=== PATIENT | male | born 1945 | race African-American/Black ===

== ENCOUNTER → 2016-10-20 | Outpatient (CLI) | payer MEDICARE ==
--- NOTE | 2016-10-20 17:13 | RADIOLOGY REPORT (SQ) ---
EXAM DESCRIPTION: CT CHEST WITH; CT ABD/PELVIS WITH IV ONLY COMPLETED DATE/TIME: 10/20/2016 3:08 pm REASON FOR STUDY: LUNG CA-ABD/PELVIS PAIN C34.91 MALIGNANT NEOPLASM OF UNSP PART OF RIGHT BRONCHUS OR COMPARISON: PET-CT 10/20/2011 CT chest 02/04/2014, 12/13/2012 CT chest and abdomen 03/24/2016 CONTRAST TYPE AND DOSE: contrast/concentration: Isovue 300.00 mg/ml; Total Contrast Delivered: 74.0 ml; Total Saline Delivered: 66.1 ml RENAL FUNCTION: Creatinine 1.5 TECHNIQUE: CT scan of the chest performed using helical scanning technique with dynamic intravenous contrast injection. Images reviewed with lung, soft tissue and bone windows. Reconstructed coronal a nd sagittal MPR images reviewed. All images stored on PACS. CT scan of the abdomen and pelvis performed with intravenous and with very limited oral contrastusing helical scanning technique with dynamic intravenous contrast injection. Images reviewed with lung, soft tissue and bone windows. Reconstructed coronal and sagittal MPR images reviewed. Delayed image s for evaluation of the urinary system also acquired and evaluated. All images stored on PACS. All CT scanners at this facility use dose modulation, iterative reconstruction, and/or weight based d osing when appropriate to reduce radiation dose to as low as reasonably achievable (ALARA). [facility]: Dose Right [facility]: CareDose [facility]: Dose Right [facility]: Teradose 4D [facility]: Smart [employer] RADIATION DOSE: Up-to-date CT equipment and radiation dose reduction techniques were employed. CTDIv ol: 4.8 - 9.6 mGy. DLP: 971 mGy-cm. . LIMITATIONS: None. FINDINGS: CHEST: LUNGS AND PLEURA: Post right upper and middle lobectomy. There is volume loss in the right hemithora x and there are surgical clips at the right hilum. No worrisome pulmonary nodules, right pleural eff usion appearance minimal right apical pleural-parenchymal scarring. Left lung and pleura are unremarkable aside from a small non calcific pleural plaque in the anterior left chest deep to the anterior 3rd rib, stable compared to previous studies. HILAR AND MEDIASTINAL STRUCTURES: No identified masses or abnormal nodes. HEART AND VASCULAR STRUCTURES: No aneurysm or dissection. No central pulmonary emboli. No pericardi al effusion. Stable moderate coronary artery calcification HARDWARE: Right permanent central line tip superior vena cava THYROID AND OTHER SOFT TISSUES: No masses. No adenopathy. BONES: No significant finding. OTHER: No other significant finding. ABDOMEN AND PELVIS: LIVER: Normal size. No masses or dilated ducts. SPLEEN: Normal size. No focal lesions. PANCREAS: Along the pancreatic tail at the splenic hilum, a 2 x 1.4 cm fluid-filled cyst and a 1.6 x 1.3 cm fluid-filled cyst are present on axial images 29-32. These are new compared to CT chest exam 03/24/2016. Question prior pancreatitis. GALLBLADDER: No identified stones by CT criteria. No inflammatory changes to suggest cholecystitis. ADRENAL GLANDS: No significant masses or asymmetry. RIGHT KIDNEY AND URETER: No solid masses. Multiple right renal cortical cysts, largest is 4.6 cm in the right mid-pole kidney. No significant calcification. No hydronephrosis. Mild ectasia of the dis martita right ureter near the ureterovesical junction without evidence of urinary outflow obstruction. T his is of doubtful clinical significance. LEFT KIDNEY AND URETER: No solid masses. Multiple left renal cortical cysts, the largest is in the l eft upper pole kidney 3.4 cm in length. Multiple less than 5 mm intrarenal nonobstructive stones are present. No hydronephrosis or hydroureter. AORTA AND VESSELS: No abdominal aortic aneurysm or dissection. Very heavily calcified bilateral karishma l arteries and bilateral common iliac arteries with greater than 50% stenosis RETROPERITONEUM: No retroperitoneal adenopathy, hemorrhage or masses. BOWEL AND PERITONEAL CAVITY: Minimal oral contrast. No gross evidence of bowel obstruction. No free intraperitoneal air or fluid. On the axial images, there is swirling of the small bowel mesenteries , on axial images 40 through 67. This could indicate twisting of the mesentery. Distal ileum small bowel loops are seen in the left upper quadrant rather than the right lower quadrant, with stretching of the distal ileum on coronal images 36-40. APPENDIX: Normal on coronal image 41 ABDOMINAL WALL: No masses. No hernias. BONES: No lytic or blastic lesions. OTHER: No other significant finding. IMPRESSION: Post right upper and middle lobectomy. No CT evidence of locally recurrent lung cancer No CT evidence of metastatic disease to the abdomen or pelvis Malposition of the distal small bowel in the left upper quadrant rather than the right lower quadrant with twisting of the mesenteries. Patient may have adhesions or internal hernia. No CT evidence of bowel obstruction. TECHNICAL DOCUMENTATION: JOB ID: [id number] Quality ID # 436: Final reports with documentation of one or more dose reduction techniques (e.g., Au tomated exposure control, adjustment of the mA and/or kV according to patient size, use of iterative reconstruction technique) 2010 [employer]- All Rights Reserved
== END ==
LOC: RAD 14:01
PROVIDERS: ATTEND Internal Medicine Medical Oncology
DX: C34.91 Malignant neoplasm of unspecified part of right bronchus or lung (principal); R10.2 Pelvic and perineal pain; R10.9 Unspecified abdominal pain
CPT/HCPCS: 71260; 74177; 82565

== ENCOUNTER → 2017-04-24 | Outpatient (CLI) | payer MEDICARE ==
--- NOTE | 2017-04-24 15:24 | RADIOLOGY REPORT (SQ) ---
EXAM DESCRIPTION: CT ABDOMEN WITH IV ORAL CONT COMPLETED DATE/TIME: 04/24/2017 2:58 pm REASON FOR STUDY: ABN ABD SCAN ON PET R93.5 ABN FINDINGS ON DX IMAGING OF ABD REGIONS, INC RETROPE COMPARISON: 03/24/2016 TECHNIQUE: CT scan of the abdomen performed with intravenous and with oral contrast using helical sc anning technique with dynamic intravenous contrast injection. Images reviewed with lung, soft tissue, and bone windows. Reconstructed coronal and sagittal MPR images reviewed. Delayed images for evaluat ion of the urinary system also acquired and evaluated. All images stored on PACS. All CT scanners at this facility use dose modulation, iterative reconstruc tion, and/or weight based dosing when appropriate to reduce radiation dose to as low as reasonably ac hievable (ALARA). [facility]: Dose Right [facility]: CareDose [facility]: Dose Right [facility]: Teradose 4D [facility]: [employer] CONTRAST TYPE AND DOSE: contrast/concentration: Isovue 370.00 mg/ml; Total Contrast Delivered: 80.0 ml; Total Saline Delivered: 68.0 ml RENAL FUNCTION: Creatinine 1.6 RADIATION DOSE: CT Rad equipment meets quality standard of care and radiation dose reduction techniq ues were employed. CTDIvol: 4.8 - 5.1 mGy. DLP: 338 mGy-cm. . LIMITATIONS: None. FINDINGS: LOWER CHEST: No significant findings. No nodules or infiltrates. LIVER: Normal size. No masses. No dilated ducts. SPLEEN: Normal size. No focal lesions. PANCREAS: No masses. No significant calcifications. No adjacent inflammation or peripancreatic fluid collections. Pancreatic duct not dilated. GALLBLADDER: No identified stones by CT criteria. No inflammatory changes to suggest cholecystitis. ADRENAL GLANDS: No significant masses or asymmetry. RIGHT KIDNEY AND URETER: No solid masses. There are some cortical cysts. No significant calcificat ions. No hydronephrosis or hydroureter. LEFT KIDNEY AND URETER: No solid masses. A couple of cortical cysts are present. There are some sm all nonobstructing intrarenal calculi. The largest measures about 3 x 8 mm. No hydronephrosis or h ydroureter. AORTA AND VESSELS: No aneurysm. No dissection. Renal arteries, SMA, celiac without stenosis. RETROPERITONEUM: No retroperitoneal adenopathy, hemorrhage or masses. BOWEL AND PERITONEAL CAVITY: No masses or inflammatory changes. No free fluid or peritoneal masses. APPENDIX: Normal. ABDOMINAL WALL: No masses. No hernias. BONES: No significant or acute findings. OTHER: No other significant finding. IMPRESSION: Renal cortical cysts. Nonobstructing left intrarenal calculi. TECHNICAL DOCUMENTATION: JOB ID: [id number] Quality ID # 436: Final reports with documentation of one or more dose reduction techniques (e.g., Au tomated exposure control, adjustment of the mA and/or kV according to patient size, use of iterative reconstruction technique) 2010 [employer]- All Rights Reserved
== END ==
LOC: RAD 14:07
PROVIDERS: ATTEND Internal Medicine Medical Oncology
DX: R93.5 Abnormal findings on diagnostic imaging of other abdominal regions, including retroperitoneum (principal); N20.0 Calculus of kidney; N28.1 Cyst of kidney, acquired
CPT/HCPCS: 74160; 82565

== ENCOUNTER → 2017-10-31 | Outpatient (CLI) | payer MEDICARE ==
--- NOTE | 2017-10-31 15:06 | RADIOLOGY REPORT (SQ) ---
EXAM DESCRIPTION: L SPINE WHOLE COMPLETED DATE/TIME: 10/31/2017 2:05 pm REASON FOR STUDY: LUMBAGO WITH SCIATICA, UNSPECIFIED SIDE M54.40 LUMBAGO WITH SCIATICA, UNSPECIFIED SIDE COMPARISON: 2015 NUMBER OF VIEWS: Five views including obliques. TECHNIQUE: AP, lateral, oblique, and sacral radiographic images acquired of the lumbar spine. LIMITATIONS: None. FINDINGS: MINERALIZATION: Osteopenia. SEGMENTATION: Normal. No transitional anatomy. ALIGNMENT: Straightening of the normal lumbar lordosis. VERTEBRAE: Maintained height. No fracture or worrisome bone lesion. DISCS: Disc disease with narrowing at multiple levels. Most pronounced at L4-5 and L5-S1. POSTERIOR ELEMENTS: No pars defect. Degenerative facet overgrowth at multiple levels. HARDWARE: None in the spine. PARASPINAL SOFT TISSUES: Dense aortic calcification. PELVIS: Intact as visualized. No fractures or worrisome bone lesions. SI joints intact. OTHER: No other significant finding. IMPRESSION: SPONDYLOSIS WITHOUT BONE LESION OR FRACTURE. TECHNICAL DOCUMENTATION: JOB ID: [id number] [employer]- All Rights Reserved Reading location - IP/workstation name: [email or web address]
== END ==
LOC: RAD 13:50
PROVIDERS: ATTEND Internal Medicine Medical Oncology
DX: M54.40 Lumbago with sciatica, unspecified side (principal); M47.896 Other spondylosis, lumbar region
CPT/HCPCS: 72110

== ENCOUNTER → 2018-06-23 | Outpatient (CLI) | payer MEDICARE ==
--- NOTE | 2018-06-24 10:28 | RADIOLOGY REPORT (SQ) ---
EXAM DESCRIPTION: PET CT SKULL/THIGH COMPLETED DATE/TIME: 06/23/2018 8:05 pm REASON FOR STUDY: LUNG CANCER C34.91 MALIGNANT NEOPLASM OF UNSP PART OF RIGHT BRONCHUS OR COMPARISON: CT chest 10/13/2011, 10/20/2016 PET-CT 12/20/2011 CT abdomen pelvis 04/24/2017, 10/20/2016 RADIONUCLIDE AND DOSE: 10.4 mCi F18 FDG The route of agent administration: Intravenous FASTING BLOOD SUGAR: 114 mg/dl CONTRAST TYPE AND DOSE: No CT contrast given. TECHNIQUE: Blood glucose level was verified. Above dose of FDG was injected intravenously. 2-D seg mented attenuation correction images were obtained from the base of the skull to the midthighs. Nonc ontrast CT images were obtained for attenuation correction and fusion with emission images. CT image s were performed without oral or intravenous contrast and are not sensitive for parenchymal lesions. A series of overlapping emission PET images were obtained. Images reviewed and manipulated at [facility] work station by the radiologist. Images stored on PACS. LIMITATIONS: None. FINDINGS: HEAD AND NECK: No areas of abnormal metabolic activity in the soft tissues of the head and neck. CHEST: Patient is post right upper lobectomy for lung cancer in 2012. Along the anterior right chest wall, just deep to the anterior right 3rd and 4th ribs, a rind of pleu ral-based tissue 2.3 x 1.1 cm in size is present with SUV 6.1. This could represent recurrent tumor, lower could represent post infectious/postinflammatory change. There are multiple subcentimeter nodules at the lung apices combined with bandlike scarring. None of these lesions are metabolically active. No metabolically active hilar or mediastinal lymph nodes. ABDOMEN AND PELVIS: No areas of abnormal metabolic activity in the abdomen or pelvis. Expected physi ologic activity is present in the genitourinary system and bowel. PROXIMAL LOWER EXTREMITIES: No areas of abnormal metabolic activity in the soft tissues of the lower extremities. BONES: No abnormal metabolic activity in the visualized skeleton. ADDITIONAL CT FINDINGS: Heavy atherosclerotic arterial vascular calcification. Bilateral renal corti dexter cysts. Left lower pole intrarenal nonobstructive less than 5 mm stones. Old postsurgical change s from right upper lobectomy. OTHER: Blood pool background activity 1.9 SUV. Liver background activity 2.9 SUV IMPRESSION: Rind of abnormal metabolically active soft tissue anterior right lung, 2.3 x 1.1 cm in s ize. TECHNICAL DOCUMENTATION: JOB ID: [id number] [employer]- All Rights Reserved Reading location - IP/workstation name: [email or web address]
== END ==
LOC: RAD 15:39
PROVIDERS: ATTEND Internal Medicine Medical Oncology
DX: C34.11 Malignant neoplasm of upper lobe, right bronchus or lung (principal); N28.1 Cyst of kidney, acquired; N20.0 Calculus of kidney
CPT/HCPCS: 78815; A9552

== ENCOUNTER 2018-07-02 08:40 | Day surgery (SDC) | payer MEDICARE ==
[2018-07-02 10:29] LABS: HEMATOCRIT 44.3 % (37.9-51.0); HEMOGLOBIN 15.1 g/dL (13.5-17.0); MEAN CORPUSCULAR HEMOGLOBIN 33.1 pg (27.0-33.4); MEAN CORPUSCULAR VOLUME 97 fl (80-97); PLATELET COUNT 221 10^3/uL (150-450); RED BLOOD COUNT 4.56 10^6/uL (4.35-5.55); RED CELL DISTRIBUTION WIDTH 16.9 % (11.5-14.0); WHITE BLOOD COUNT 7.1 10^3/uL (4.0-10.5)
[2018-07-02 10:36] LABS: INTERNATIONAL RATION (INR) 0.95; PROTHROMBIN TIME 13.2 SEC (11.4-15.4)
[2018-07-02 10:59] LABS: BLOOD UREA NITROGEN 22 mg/dL (7-20)
[2018-07-02] MEDS ORDERED: FENTANYL CITRATE INJ/PF 100 MCG/2 ML AMPUL ONE (11:43)
[2018-07-02] MEDS ORDERED: MIDAZOLAM 2 MG/2 ML INJ ONE (11:43)
[2018-07-02] MEDS ORDERED: LIDOCAINE 1% INJ-PF (10 MG/ML) 30 ML SDV ONE (11:43)
--- NOTE | 2018-07-02 12:47 | RADIOLOGY REPORT (SQ) ---
EXAM DESCRIPTION: CHEST SINGLE VIEW COMPLETED DATE/TIME: 07/02/2018 12:38 pm REASON FOR STUDY: POST LUNG BX COMPARISON: Chest films 04/21/2015, PET-CT 06/23/2018 EXAM PARAMETERS: NUMBER OF VIEWS: One view. TECHNIQUE: Single frontal radiographic view of the chest acquired. RADIATION DOSE: NA LIMITATIONS: None. FINDINGS: LUNGS AND PLEURA: Post anterior right lung pleural based nodule biopsy. No right sided pn eumothorax. Old right upper and middle lobectomy changes. Left lung well inflated and clear. No pleural effusions. No left pneumothorax. MEDIASTINUM AND HILAR STRUCTURES: No masses. Contour normal. HEART AND VASCULAR STRUCTURES: Heart normal in size. Normal vasculature. BONES: No acute findings. HARDWARE: None in the chest. OTHER: No other significant finding. IMPRESSION: No pneumothorax post right lung biopsy. Old prior right upper and middle lobectomy TECHNICAL DOCUMENTATION: JOB ID: [id number] [employer]- All Rights Reserved Reading location - IP/workstation name: [email or web address]
--- NOTE | 2018-07-02 13:45 | RADIOLOGY REPORT (SQ) ---
EXAM DESCRIPTION: CT BIOPSY LUNG/MEDIASTINUM; CT NEEDLE PLACEMENT COMPLETED DATE/TIME: 07/02/2018 12:26 pm REASON FOR STUDY: MALIGNANT NEOPLASM OF RIGHT BRONCHUS OR LUNG; LUNG BIOPSY C34.91 MALIGNANT NEOPLA SM OF UNSP PART OF RIGHT BRONCHUS OR Z79.01 CARE HOME (CURRENT) USE OF ANTICOAGULANTS COMPARISON: PET-CT 06/23/2018 CT chest 10/20/2016 TECHNIQUE: CT guided biopsy of the pleural-based right lung mass performed with conscious sedation. CT Fluoroscopy Time: 4.[address] fluoro time All CT scanners at this facility use dose modulation, iterative reconstruction, and/or weight based d osing when appropriate to reduce radiation dose to as low as reasonably achievable (ALARA). [facility]: Dose Right [facility]: CareDose [facility]: Dose Right [facility]: Teradose 4D [facility]: [employer] RADIATION DOSE: mGy. FINDINGS: After obtaining informed consent and explaining the risks and benefits of conscious sedati on,the patient agreed to the procedure. Prior to the procedure, a time out was performed to verify th e patient's identity and planned procedure. IV sedation was administered and physician direction by the registered nurse using 1 milligrams of Ve rsed and 50 micrograms of fentanyl, for conscious sedation. Physiologic monitoring was provided befor e, during, and after sedation. The total sedation time was 35 minutes. Documentation face to face time, the performing proceduralist, spent monitoring the patient: [address] scanning was performed to localize the percutaneous site for the biopsy approach. After sterile skin prep and local lidocaine for skin and deep tissue anesthesia, a coaxial biopsy nee dle was used to obtain 3 cores of tissue. The biopsy tissue was submitted to the lab in formalin. The re were no immediate complications. Pathology is pending No pneumothorax on post procedure chest x-ray dictated separately IMPRESSION: CT GUIDED BIOPSY OF THE RIGHT LUNG MASS PERFORMED WITHOUT IMMEDIATE COMPLICATION. PATHO LOGY PENDING. COMMENT: Quality ID 145: Final reports for procedures using fluoroscopy that document radiation exp osure indices, or exposure time and number of fluorographic images (if radiation exposure indices are not available) Patient medication list reviewed: Yes- Quality ID# [id number]:Eligible professional attests to documenting i n the medical record they obtained, updated, or reviewed the patient's current medications.. TECHNICAL DOCUMENTATION: JOB ID: [id number] Quality ID# 436: Final reports with documentation of one or more dose reduction techniques (e.g., Aut omated exposure control, adjustment of the mA and/or kV according to patient size, use of iterative r econstruction technique) 2010 [employer]- All Rights Reserved Reading location - IP/workstation name: [email or web address]
--- NOTE | 2018-07-02 13:45 | RADIOLOGY REPORT (SQ) ---
EXAM DESCRIPTION: CT BIOPSY LUNG/MEDIASTINUM; CT NEEDLE PLACEMENT COMPLETED DATE/TIME: 07/02/2018 12:26 pm REASON FOR STUDY: MALIGNANT NEOPLASM OF RIGHT BRONCHUS OR LUNG; LUNG BIOPSY C34.91 MALIGNANT NEOPLA SM OF UNSP PART OF RIGHT BRONCHUS OR Z79.01 CUSTODIAL (CURRENT) USE OF ANTICOAGULANTS COMPARISON: PET-CT 06/23/2018 CT chest 10/20/2016 TECHNIQUE: CT guided biopsy of the pleural-based right lung mass performed with conscious sedation. CT Fluoroscopy Time: 4.[address] fluoro time All CT scanners at this facility use dose modulation, iterative reconstruction, and/or weight based d osing when appropriate to reduce radiation dose to as low as reasonably achievable (ALARA). [facility]: Dose Right [facility]: CareDose [facility]: Dose Right [facility]: Teradose 4D [facility]: [employer] RADIATION DOSE: mGy. FINDINGS: After obtaining informed consent and explaining the risks and benefits of conscious sedati on,the patient agreed to the procedure. Prior to the procedure, a time out was performed to verify th e patient's identity and planned procedure. IV sedation was administered and physician direction by the registered nurse using 1 milligrams of Ve rsed and 50 micrograms of fentanyl, for conscious sedation. Physiologic monitoring was provided befor e, during, and after sedation. The total sedation time was 35 minutes. Documentation face to face time, the performing proceduralist, spent monitoring the patient: [address] scanning was performed to localize the percutaneous site for the biopsy approach. After sterile skin prep and local lidocaine for skin and deep tissue anesthesia, a coaxial biopsy nee dle was used to obtain 3 cores of tissue. The biopsy tissue was submitted to the lab in formalin. The re were no immediate complications. Pathology is pending No pneumothorax on post procedure chest x-ray dictated separately IMPRESSION: CT GUIDED BIOPSY OF THE RIGHT LUNG MASS PERFORMED WITHOUT IMMEDIATE COMPLICATION. PATHO LOGY PENDING. COMMENT: Quality ID 145: Final reports for procedures using fluoroscopy that document radiation exp osure indices, or exposure time and number of fluorographic images (if radiation exposure indices are not available) Patient medication list reviewed: Yes- Quality ID# [id number]:Eligible professional attests to documenting i n the medical record they obtained, updated, or reviewed the patient's current medications.. TECHNICAL DOCUMENTATION: JOB ID: [id number] Quality ID# 436: Final reports with documentation of one or more dose reduction techniques (e.g., Aut omated exposure control, adjustment of the mA and/or kV according to patient size, use of iterative r econstruction technique) 2010 [employer]- All Rights Reserved Reading location - IP/workstation name: [email or web address]-
--- NOTE | 2018-07-02 14:52 | RADIOLOGY REPORT (SQ) ---
EXAM DESCRIPTION: CHEST SINGLE VIEW COMPLETED DATE/TIME: 07/02/2018 2:23 pm REASON FOR STUDY: POST LUNG BX 2 HR COMPARISON: 07/02/2018, 1220 hours EXAM PARAMETERS: NUMBER OF VIEWS: One view. TECHNIQUE: Single frontal radiographic view of the chest acquired. RADIATION DOSE: NA LIMITATIONS: None. FINDINGS: LUNGS AND PLEURA: No right pneumothorax 2 hours post right lung biopsy. Old post right upper and middle lobectomy changes. Lungs are free of focal infiltrates. No pleural effusions. MEDIASTINUM AND HILAR STRUCTURES: Surgical clips right hilum post right middle and upper lobectomy HEART AND VASCULAR STRUCTURES: Heart normal in size. Normal vasculature. BONES: No acute findings. HARDWARE: None in the chest. OTHER: No other significant finding. IMPRESSION: No pneumothorax 2 hours post right lung biopsy TECHNICAL DOCUMENTATION: JOB ID: [id number] [employer]- All Rights Reserved Reading location - IP/workstation name: [email or web address]
[2018-07-02 20:59] VITALS: BP 121/68
== END 2018-07-02 14:20 | disposition home or self-care (01) ==
LOC: RAD 08:40
PROVIDERS: ATTEND Internal Medicine Medical Oncology
DX: C34.91 Malignant neoplasm of unspecified part of right bronchus or lung (principal); Z79.01 Long term (current) use of anticoagulants; R06.02 Shortness of breath; F17.210 Nicotine dependence, cigarettes, uncomplicated; D64.9 Anemia, unspecified
CPT/HCPCS: 36415; 84520; 82565; 85027; 85610; 85730; 88342 ×2; 88341 ×2; 88305 ×2; 88313 ×2; 71045; 77012; 32405; J2250; J3010; J3490

== ENCOUNTER → 2018-11-27 | Outpatient (CLI) | payer MEDICARE | LOC: RAD 10:00 | PROVIDERS: ATTEND Internal Medicine Medical Oncology | DX: R52 Pain, unspecified (principal); R20.0 Anesthesia of skin | CPT/HCPCS: 82565 ==

== ENCOUNTER → 2018-12-01 | Outpatient (CLI) | payer MEDICARE ==
--- NOTE | 2018-12-02 12:16 | RADIOLOGY REPORT (SQ) ---
EXAM DESCRIPTION: PET CT SKULL/THIGH COMPLETED DATE/TIME: 12/01/2018 10:19 pm REASON FOR STUDY: (C34.11)MALIGNANT NEOPLASM OF UPPER LOBE, RIGHT BRONCHUS OR LUNG C34.11 MALIGNANT NEOPLASM OF UPPER LOBE, RIGHT BRONCHUS OR L COMPARISON: 06/23/2018. RADIONUCLIDE AND DOSE: 10 mCi F18 FDG The route of agent administration: Intravenous FASTING BLOOD SUGAR: 113 mg/dl CONTRAST TYPE AND DOSE: No CT contrast given. TECHNIQUE: Blood glucose level was verified. Above dose of FDG was injected intravenously. 2-D seg mented attenuation correction images were obtained from the base of the skull to the midthighs. Nonc ontrast CT images were obtained for attenuation correction and fusion with emission images. CT image s were performed without oral or intravenous contrast and are not sensitive for parenchymal lesions. A series of overlapping emission PET images were obtained. Images reviewed and manipulated at [facility] work [facility] by the radiologist. Images stored on PACS. LIMITATIONS: None. FINDINGS: HEAD AND NECK: No areas of abnormal metabolic activity in the soft tissues of the head and neck. CHEST: Stable surgical changes and scarring. Previously seen pleural-based soft tissue mass in the a nterior right chest (axial series 3, image 77) currently measures 0.8 by 2.9 cm. Mean SUV is 1.3 wit h prior value 6.1. There is indistinct focal nodularity in the medial left upper lobe, anterior to t he aortic arch (axial series 3, image 71). Mean SUV 3.01. Again seen are several subcentimeter pulm onary nodules, particularly in the left upper lobe, which appear generally unchanged and are not hype rmetabolic. ABDOMEN AND PELVIS: There is a 1.5 cm low-attenuation lesion in the superior right lobe of the liver (axial series 3, image 108) which is not hypermetabolic. There is an ill-defined lesion in the infer ior right lobe of the liver (axial series 3, image 135) which measures approximately 3.8 cm. Mean TORO V value ranges from 3.09 to 4.08. Expected physiologic activity is present in the genitourinary syst em and bowel. PROXIMAL LOWER EXTREMITIES: No areas of abnormal metabolic activity in the soft tissues of the lower extremities. BONES: No abnormal metabolic activity in the visualized skeleton. ADDITIONAL CT FINDINGS: Renal cortical cysts. Nonobstructing calculi. No additional significant fin dings on the noncontrast CT images. OTHER: Background blood pool activity mean SUV 1.42. Background liver activity mean SUV 2.08. No ot her significant findings. IMPRESSION: 1. PLEURAL-BASED SOFT TISSUE MASS IN THE ANTERIOR RIGHT CHEST, RELATIVELY UNCHANGED ON THE CT IMAGES. HOWEVER, ACTIVITY HAS DECREASED. CURRENT SUV VALUE IS 1.3 WITH PRIOR VALUE 6.1. THERE IS A NEW IN DISTINCT AREA OF NODULARITY IN THE MEDIAL LEFT UPPER LOBE WITH MEAN SUV 3.01. THIS COULD REPRESENT A FOCAL AREA OF INFLAMMATION OR INFECTION. MALIGNANT PROCESS CANNOT BE EXCLUDED. 2. MULTIPLE PULMONARY NODULES PARTICULARLY IN THE LEFT UPPER LOBE, UNCHANGED AND NOT HYPERMETABOLIC. 3. INDISTINCT LESION IN THE INFERIOR RIGHT LOBE OF THE LIVER DESCRIBED WITH ABNORMAL ACTIVITY CONS ISTENT WITH METASTASIS. THERE IS ALSO AN INDISTINCT LOW-ATTENUATION LESION IN THE SUPERIOR RIGHT LOB E OF THE LIVER. THIS WAS NOT PRESENT ON PRIOR CT (04/24/2017) AND IS CONCERNING FOR METASTATIC INVOL VEMENT, ALTHOUGH THERE IS NO ABNORMAL INCREASED ACTIVITY ON THE PET IMAGING. 4. REMAINDER OF THE PET SCAN IS UNREMARKABLE. OTHER CT FINDINGS ABOVE. TECHNICAL DOCUMENTATION: JOB ID: [id number] [employer]- All Rights Reserved Reading location - IP/workstation name: [email or web address]
== END ==
LOC: RAD 17:43
PROVIDERS: ATTEND Internal Medicine Medical Oncology
DX: C34.11 Malignant neoplasm of upper lobe, right bronchus or lung (principal)
CPT/HCPCS: 78815; A9552

== ENCOUNTER → 2019-11-04 | Outpatient (CLI) | payer MEDICARE ==
--- NOTE | 2019-11-04 13:34 | RADIOLOGY REPORT (SQ) ---
EXAM DESCRIPTION: CT CHEST WITHOUT IMAGES COMPLETED DATE/TIME: 11/04/2019 8:47 am REASON FOR STUDY: R22.9 SOLITARY PULMONARY NODULE R91.1 SOLITARY PULMONARY NODULE COMPARISON: None. TECHNIQUE: CT scan performed of the chest without intravenous contrast. Images reviewed with lung, soft tissue and bone windows. Reconstructed coronal and sagittal MPR images reviewed. All images st ored on PACS. All CT scanners at this facility use dose modulation, iterative reconstruction, and/or weight based d osing when appropriate to reduce radiation dose to as low as reasonably achievable (ALARA). [facility]: Dose Right [facility]: CareDose [facility]: Dose Right [facility]: Teradose 4D [facility]: [employer] [place] RADIATION DOSE: CT Rad equipment meets quality standard of care and radiation dose reduction techniq ues were employed. CTDIvol: 9.8 mGy. DLP: 441 mGy-cm. mGy. LIMITATIONS: No technical limitations. FINDINGS: LUNGS AND PLEURA: There is pleural/parenchymal scarring in the left apex. There is right upper and middle lobectomy with reduced volume in the right lung. There is masslike opacification an terolaterally on the right seen best on image 49 series 4. This measures 36.7 x 40.8 mm There are so me air bronchograms. A 14 mm pulmonary nodule is seen in the left upper lobe medially subpleural loc ation. HILAR AND MEDIASTINAL STRUCTURES: No identified masses or abnormal nodes. No obvious aneurysm. HEART AND VASCULAR STRUCTURES: No aneurysm. No pericardial effusion. UPPER ABDOMEN: Renal cysts, left renal calcifications. The liver has a heterogeneous appearance with slightly decreased attenuation posteriorly in the right lobe. Also, on image 60 series 2 there is a fairly well-defined 19 mm low-density lesion THYROID AND OTHER SOFT TISSUES: No masses. No adenopathy. BONES: No significant finding. HARDWARE: None in the chest. OTHER: No other significant findings. IMPRESSION: 1. Masslike opacification anteriorly and medially as described. Cannot exclude neoplas m. Cannot exclude pneumonia. 2. There is a 14 mm pulmonary nodule in the left upper lobe medially concerning for metastatic lesio n. Heterogeneous the liver as described. Cannot exclude metastatic disease. 3. Recommend PET-CT. TECHNICAL DOCUMENTATION: JOB ID: [id number] Quality ID # [id number]: Final reports with documentation of one or more dose reduction techniques (e.g., Au tomated exposure control, adjustment of the mA and/or kV according to patient size, use of iterative reconstruction technique) 2010 [employer]- All Rights Reserved Reading location - IP/workstation name: [email or web address]
== END ==
LOC: RAD 08:26
PROVIDERS: ATTEND Internal Medicine
DX: C34.90 Malignant neoplasm of unspecified part of unspecified bronchus or lung (principal); C79.9 Secondary malignant neoplasm of unspecified site; R22.9 Localized swelling, mass and lump, unspecified
CPT/HCPCS: 71250